=== PATIENT | male | born 1965 | race Caucasian/White ===

== ENCOUNTER 2020-09-13 09:30 | Outpatient (CLI) | payer OTHER | END 2020-09-13 09:43 | disposition home or self-care (01) | LOC: LAB 09:30 | PROVIDERS: ATTEND Urology | DX: R97.20 Elevated prostate specific antigen [PSA] (principal) ==

== ENCOUNTER 2020-09-28 07:26 | Outpatient (CLI) | payer OTHER | END 2020-09-28 07:37 | disposition home or self-care (01) | LOC: SONOGRAMA 07:26 | PROVIDERS: ATTEND Urology | DX: C61 Malignant neoplasm of prostate (principal); R97.20 Elevated prostate specific antigen [PSA] ==